=== PATIENT | male | born 2000 | race Caucasian/White ===

== ENCOUNTER 2023-01-26 20:58 | Emergency (ER) | payer BC ==
[~2023-01-26] VITALS: Ht 180.3 cm; Wt 100.0 kg
[2023-01-26 21:04] VITALS: BP 133/85
[2023-01-26] MEDS ORDERED: LIDOcaine 1% W/epiNEPHrine 1:100,000 20ml vial SQ ONE (22:25)
== END 2023-01-26 23:38 | disposition home or self-care (01) ==
LOC: ER 21:00
DX: S62.336A Displaced fracture of neck of fifth metacarpal bone, right hand, initial encounter for closed fracture (principal); W22.8XXA Striking against or struck by other objects, initial encounter; Y93.89 Activity, other specified; Y92.89 Other specified places as the place of occurrence of the external cause; Y99.8 Other external cause status
CPT/HCPCS: 26605; 73130; 99284; J3490

== ENCOUNTER 2023-04-08 13:37 | Emergency (ER) | payer BC ==
[~2023-04-08] VITALS: Ht 180.3 cm; Wt 79.5 kg
[2023-04-08 14:16] LABS: BASOPHILS % (AUTO) 0.4 % (0-1); EOSINOPHILS # (AUTO) 0.1 X10'3 (0-0.9); EOSINOPHILS % (AUTO) 0.8 % (0-6); HEMATOCRIT 43.9 % (42.0-52.0); HEMOGLOBIN 14.7 g/dl (14.0-17.9); LYMPHOCYTES # (AUTO) 2.4 X10'3 (1.1-4.8); LYMPHOCYTES % (AUTO) 27.5 % (21-51); MEAN CORPUSCULAR HEMOGLOBIN 29.7 PG (27.0-31.0); MEAN CORPUSCULAR HGB CONC 33.5 g/dL (33.0-36.5); MEAN CORPUSCULAR VOLUME 88.8 FL (78-98); MEAN PLATELET VOLUME 8.7 FL (7.4-10.4); MONOCYTES # (AUTO) 0.7 X10'3 (0-0.9); MONOCYTES % (AUTO) 7.9 % (2-12); NEUTROPHILS # (AUTO) 5.4 X10'3 (1.8-7.7); NEUTROPHILS % (AUTO) 63.4 % (42-75); PLATELET COUNT 267 X10'3 (140-440); RED BLOOD COUNT 4.94 X10'6 (4.70-6.10); RED CELL DISTRIBUTION WIDTH 13.8 % (11.5-14.5); WHITE BLOOD COUNT 8.6 X10'3 (4.5-11.0)
[2023-04-08 14:38] LABS: ALANINE AMINOTRANSFERASE 24 U/L (12-78); ALBUMIN 4.5 G/DL (3.4-5.0); ALBUMIN/GLOBULIN RATIO 1.5 (1.1-1.5); ALKALINE PHOSPHATASE 119 IU/L (46-116); ANION GAP 11 (8-16); ASPARTATE AMINO TRANSFERASE 13 U/L (10-37); BILIRUBIN,TOTAL 0.7 MG/DL (0.1-1.0); BLOOD UREA NITROGEN 9 MG/DL (7-18); BUN/CREATININE RATIO 9.3 (10.0-20.0); CALCIUM 9.6 MG/DL (8.5-10.1); CHLORIDE 106 MMOL/L (99-107); CREATININE 0.97 MG/DL (0.60-1.10); GLUCOSE 99 MG/DL (70-104); POTASSIUM 3.8 MMOL/L (3.5-5.1); SODIUM 145 MMOL/L (135-145); TOTAL CARBON DIOXIDE 27.7 MMOL/L (24-32); TOTAL PROTEIN 7.5 G/DL (6.4-8.2); eGFR > 90 ML/MIN
[2023-04-08 14:48] LABS: THYROID STIMULATING HORMONE 0.65 ulU/ml (0.34-4.50)
[2023-04-08 14:54] LABS: ETHANOL < 10 MG/DL (<10)
[2023-04-08 15:04] LABS: BILIRUBIN,URINE NEGATIVE (Neg); CLARITY,URINE CLOUDY (Clear); COLOR,URINE YELLOW (Yellow); GLUCOSE, URINE NEGATIVE (Neg); KETONES,URINE NEGATIVE (Neg); LEUKOCYTE ESTERASE ,URINE NEGATIVE (Neg); NITRITES, URINE NEGATIVE (Neg); OCCULT BLOOD,URINE TRACE-INTACT (Neg); PROTEIN,URINE TRACE mg/dl (Neg); UROBILINOGEN,URINE 0.2 E.U/dL (0.2-1.0)
[2023-04-08 15:05] LABS: UA COLLECTION TYPE CLN CATCH MIDSTREAM
[2023-04-08 15:09] LABS: URINE AMPHETAMINE SCREEN NEGATIVE (Neg); URINE BARBITUATE SCREEN NEGATIVE (Neg); URINE BENZODIAZEPINES SCREEN NEGATIVE (Neg); URINE CANNABINOID SCREEN NEGATIVE (Neg); URINE COCAINE SCREEN NEGATIVE (Neg); URINE METHADONE SCREEN NEGATIVE (Neg); URINE OPIATE SCREEN NEGATIVE (Neg); URINE PHENCYCLIDINE SCREEN NEGATIVE (Neg)
[2023-04-08 15:10] LABS: MUCUS STRANDS MANY /LPF (Neg); SQUAMOUS EPITHELIAL CELL,UR MODERATE /LPF (FEW)
[2023-04-08 15:11] LABS: BACTERIA,URINE 1+ /HPF (Neg); RBC,URINE 0-2 /HPF (0-2); WBC,URINE 0-4 /HPF (0-4)
--- NOTE | 2023-04-08 16:08 | NUR ---
PT SITTING ON EDGE OF BED , NO COMPLAINTS .
[2023-04-08 16:22] VITALS: BP 141/94; PULSE 78; TEMP 98.6; O2SAT 100
[2023-04-08 16:50] VITALS: RESP 16
--- NOTE | 2023-04-08 17:03 | NUR ---
SANJEEV, Celine, evaluating patient. No distress observed.
== END 2023-04-08 18:53 | disposition home or self-care (01) ==
LOC: ER 13:37
DX: R45.851 Suicidal ideations (principal); Z20.822 Contact with and (suspected) exposure to COVID-19
CPT/HCPCS: 36415; 80053; 80305; 80320; 81001; 84443; 85025; 87811; 99285

== ENCOUNTER 2025-01-09 08:37 | Emergency (ER) | payer BC ==
[~2025-01-09] VITALS: Ht 182.9 cm; Wt 80.3 kg
[~2025-01-09 08:37] MED LIST: DICL50TA8 PO; ONDA-243 PO
[2025-01-09 08:40] VITALS: BP 144/79; PULSE 102; RESP 18; TEMP 98.1; O2SAT 100
[2025-01-09 09:46] LABS: STREP A SCREEN POSITIVE (Neg)
[2025-01-09] MEDS: ondansetron 4mg rapidly disintigrating tab PO ONE (09:47)
[2025-01-09] MEDS: dexamethasone sod phosphate 10mg/ml inj PO STA (09:47)
[2025-01-09] MEDS: ketorolac trometh 30MG/ML vial 30 MG/ML VIAL IM ONE (09:49)
[2025-01-09] MEDS ORDERED: AMOX500C2 PO (10:02)
--- NOTE | 2025-01-09 10:02 | Physician Documentation ---
History of Present Illness ~ Chief Complaint: Sore Throat Stated Complaint: THROAT PAIN Time Seen by MD: 08:51 HPI 24-YEAR-OLD MALE PRESENTS WITH THREE DAYS OF SORE THROAT. HE HAS HAS DIFFICULTY SWALLOWING. STATES HE HAS FELT LIKE HE HAS HAD A FEVER WELL. Medication Reconciliation Allergies: Coded Allergies: No Known Allergies (Unverified , 05/14/23) Scheduled Amoxicillin Trihydrate* (Amoxicillin*), 1 CAP PO Q8H Diclofenac Sodium (Diclofenac Sodium), 1 TABLET PO BID ONDANSETRON ODT 4mg tablet (Ondansetron Odt), 1 TABLET PO Q6H Past Medical History Past Medical History: No Pertinent History Alcohol Use: Occasionally Drug Use: none Review of Systems All Other Systems at this time: Reviewed and Negative ROS As stated above in the HPI, otherwise all systems are reviewed and negative. Physical Exam Vital Signs: Temperature: 98.1, Source: Oral, Heart Rate: 102, Respiratory Rate: 18, BP: 144/79, Pulse Oximetry: 100, Weight: 80.350 Oxygen Flow Rate: 0 Physical Exam General: Alert, no apparent distress. HEENT: PERRL, EOMI, no injection, moist mucous membranes. INFLAMED PHARYNX WITH EXUDATE Neck: Full range of motion. Respiratory: Lungs clear, no respiratory distress. Neurologic: Oriented x4. Psychiatric: Normal mood and affect. Skin: Normal color, warm and dry. No edema, no ecchymosis. 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 Tablet (Zofran Odt T (01/09/25 09:40) Ketorolac Trometh 30mg/Ml Vial (Toradol (01/09/25 09:45) Dexamethasone Inj (Decadron 10mg/Ml Inj) (01/09/25 09:55) Medications Received in ER Medications (Trade) Dose Ordered Sig/Shameka Route PRN Reason Start Time Stop Time Status Last Admin Dose Admin (Decadron 10mg/ ml inj) 10 mg ONCE STAT PO 01/09/25 09:07 01/09/25 09:09 DC 01/09/25 09:47 10 MG (Zofran ODT tablet) 4 mg ONCE ONCE PO 01/09/25 09:40 01/09/25 09:41 DC 01/09/25 09:47 4 MG (Decadron 10mg/ ml inj) 10 mg ONCE STAT IM 01/09/25 09:55 01/09/25 10:03 DC 01/09/25 10:09 10 MG Vital Signs 01/09/25 08:40 Temp 98.1 Pulse 102 Resp 18 B/P (MAP) 144/79 Pulse Ox 100 O2 Flow Rate 0 Laboratory Tests Test 01/09/25 09:09 Group A Streptococcus Rapid Positive H Medical Decision Making Findings TREATING PATIENT FOR A POSITIVE STREP A TEST. 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
[2025-01-09] MEDS: dexamethasone sod phosphate 10mg/ml inj IM STA (10:09)
== END 2025-01-09 10:14 | disposition home or self-care (01) ==
LOC: ER 08:37
DX: J02.9 Acute pharyngitis, unspecified (principal); R13.10 Dysphagia, unspecified; Z79.899 Other long term (current) drug therapy; Z72.89 Other problems related to lifestyle
CPT/HCPCS: 87880; 96372; 99283; J1100